=== PATIENT | female | born 1960 | race Caucasian/White ===

== ENCOUNTER 2023-10-05 09:16 | Emergency (ER) | payer BC ==
[2023-10-05] VITALS (22 sets, daily range): BP systolic 101–133; BP diastolic 48–70
[~2023-10-05] VITALS: Ht 172.7 cm; Wt 68.0 kg
[2023-10-05] MEDS ORDERED: EPINEPHrine HCL 1 MG/ML AMP IM ONE (09:30)
[2023-10-05] MEDS ORDERED: methylPREDNISolone SODIUM SUCC 125 MG/2 ML SDV IV ONE (09:30)
[2023-10-05] MEDS ORDERED: FAMOTIDINE 10MG/ML 2ML SDV IV ONE (09:30)
[2023-10-05] MEDS ORDERED: DiphenhydrAMINE HCL 50 MG/ML SDV IV ONE (10:05)
[2023-10-05 10:15] LABS: BASO% 0.1 % (0-3); EOS% 0.8 % (0-8); HEMATOCRIT 39.7 % (37.0-47.0); HEMOGLOBIN 12.8 g/dl (12.0-16.0); LYMPH% 52.3 % (15-41); MEAN CELL VOLUME 92.8 fL CALC (80.0-100.0); MEAN CORPUSCULAR HGB 29.9 pG CALC (26.0-32.0); MEAN CORPUSCULAR HGB CONC 32.2 g/dL CAL (32.0-36.0); MONO% 12.6 % (2-13); NEUT# 2.69 thou/uL (2.00-7.15); NEUT% 34.2 % (42-76); RED BLOOD COUNT 4.28 mill/uL (4.20-5.60)
[2023-10-05 10:24] LABS: ALBUMIN 3.7 g/dL (3.2-5.0); BILIRUBIN, TOTAL 0.4 mg/dL (0.02-1.3); CREATININE 0.7 mg/dL (0.5-1.0); POTASSIUM 4.2 mmol/l (3.5-5.1); TOTAL PROTEIN 6.3 g/dL (6.3-8.2)
[2023-10-05] MEDS ORDERED: ALL DAY10 MG PO ×2 (13:44→14:47)
[2023-10-05] MEDS ORDERED: PREDNISONE50 MG PO ×2 (13:44→14:47)
[2023-10-05] MEDS ORDERED: EPIPEN 2-P0.3 MG/0.3 IM ×2 (13:44→14:47)
== END 2023-10-05 15:26 | disposition home or self-care (01) | DRG 607 ==
LOC: ED 09:16
PROVIDERS: Family Medicine
DX: L50.0 Allergic urticaria (principal)